=== PATIENT | male | born 1945 | race Caucasian/White ===

== ENCOUNTER 2016-06-08 07:09 | Outpatient (CLI) | payer MEDICARE, BC ==
[~2016-06-08] VITALS: Ht 167.6 cm; Wt 89.2 kg
--- NOTE | ~2016-06-08 | CATH ---
Cardiac Diagnostic Report Demographics Patient Name UNIQUE Keen Gender Male Date of 1945 Age 71 year(s) Patient Number [id number] Date of Study 06/08/2016 Visit Number [id number] Room Number G63[address] [place] [id number] Ht 167.64 cm Wt 89.2 kg Referring Janes Carlisle Primary Physician Physician Performing Efstratiou Secondary Physician Physician Carmencita Carlin MD Diagnostic Efstratiou Assisting Physician Physician Carmencita Carlin MD Interventional Physician Chair Inspector Physician Findings and Conclusions Diagnostic Findings and Conclusion Non-obstructive CAD. Preserved EF (55-60%). Diagnostic Recommendations Add beta mariza and statin. Procedure Description The patient was brought to the diagnostic cardiac catheterization-EP laboratory in the fasting, non-sedated state. Informed consent was obtained in the written and verbal form after the risks and benefits were explained. The patient had no further questions and agreed to proceed. The planned puncture-incision site(s) were shaved and prepped with ChloraPrep and draped in the usual sterile manner. Supplemental oxygen and pain control medications were delivered by a registered nurse under physician guidance. Surface ECG rhythm, blood pressure measurement, and pulse oximetry were monitored throughout the procedure. Arterial access. The access site was infiltrated with lidocaine. The vessel was entered with the Seldinger technique. A sheath was advanced into the vessel and used for catheter placement. Selective left coronary angiography. A catheter was advanced into the left coronary vessel ostium under Fluoroscopic guidance. Contrast was injected by hand. Images were obtained in multiple projections. Selective right coronary angiography. A catheter was advanced into the right coronary vessel ostium under fluoroscopic guidance. Contrast was injected by hand. Images were obtained in multiple projections. Left heart catheterization with ventriculography. A catheter was advanced across the aortic valve to the left ventricle under fluoroscopic guidance. Resting hemodynamics were obtained. With the catheter at the left ventricular apex, contrast was injected. Images were obtained in DIVEHI projections. Post-ventriculography LV pressure was obtained. The catheter was gradually withdrawn into the aorta with continuous pressure recording. Arterial artery hemostasis was achieved. The patient was transferred to [facility] via cart accompanied by a nurse. The patient left the laboratory in stable condition. Diagnostic Cath Status: Elective Procedure Procedure Type Diagnostic procedure:Ventriculogram:, Left, Angiography:, Coronary Angios w/[facility] Indications: Shortness of breath and Premature Ventricular Contractions. The procedure was explained in detail to the patient. Risks, complications and alternative treatments were reviewed. Written consent was obtained. Medications Reviewed with Patient prior to Procedure. Angiographic Findings Dominance: Right Cardiac Arteries and Lesion Findings LMCA: Normal (0% Stenosis).Patent. LAD: Multiple stenosis.Diag patent. Lesion on Prox LAD: Ostial.25% stenosis . Lesion on Prox LAD: Distal subsection.25% stenosis . Lesion on Dist LAD: Mid subsection.30% stenosis . LCx: Multiple stenosis. Lesion on Mid CX: Mid subsection.30% stenosis . Lesion on 1st Ob Janie: Mid subsection.20% stenosis . RCA: Multiple stenosis. Lesion on Prox RCA: Proximal subsection.30% stenosis . Lesion on Dist RCA: Distal subsection.30% stenosis . Coronary Tree Procedure Data Procedure Date Date: 06/08/2016Start: 09:16 AMEnd: 09:56 AM Entry Locations - Antegrade Percutaneous access was performed through the Right Radial artery (Primary location). A 6 Fr sheath was inserted. Hemostasis was successfully obtained using Mechanical Compression. Closure Comments: 12 ml of air in R. Band by Kam Verma. Procedure Medications Order and Administration + + +-------+-------+ !Time !Medication !Dosage !Route ! + + +-------+-------+ !06/08/2016 !Fentanyl !50 mcg !I.V. ! !09:11 AM ! ! ! ! + + +-------+-------+ !06/08/2016 !PAE Radial Cocktail: Heparin 5000 units, ! !I.A. ! !09:19 AM !Nitroglycerin 200mcg, Verapamil 3 mg ! ! ! ! !(ACC_3) ! ! ! + + +-------+-------+ Devices Used - A6 Fr. BS JR 4 Diag. Catheterwas used for:Right coronary angiography. - A6 Fr. BS JL 3.5 Diag. Catheterwas used for:Left coronary angiography. - A6 Fr. BS Angled Pigtail Diag. Catheterwas used for:Left ventriculography. Contrast Material - Isovue 37074 ml Fluoroscopy Time: Diagnostic: 3:08 minutes. Total: 3:08 minutes. Fluoroscopy Dose: Diagnostic: 869 mGy. Total: 869 mGy. Estimated Blood Loss: 10 ml. Medical History Allergies - Penicillin. - Sulfa. Risk Factors The patient risk factors include:hypertension, family history of premature CAD, last creatinine: 1 mg/dl, creatinine clearance: 85.48 ml/min and prior SC . Admission Data Admission Date: 06/08/2016 Admission Time: 07:09 AM Admit Source: Other Insurance Payors: Medicare. Admission Medications + +------+------+ + + + + !Medication !Dosage!Times !Last !Last !Administered !Comments ! ! ! !Per !Delivery !Delivery ! ! ! ! ! !Day !Date !Time ! ! ! + +------+------+ + + + + !Aspirin ! ! ! ! ! ! ! !(any) ! ! ! ! ! ! ! + +------+------+ + + + + !Beta ! ! ! ! ! ! ! !Mariza ! ! ! ! ! ! ! !(any) ! ! ! ! ! ! ! + +------+------+ + + + + Clinical Evaluation Leading to Procedure - There were no CAD presentation symptoms. - There were no anginal symptoms. Anti-anginal medications were prescribed during the past two weeks. The medication is: Beta Blockers. - The patient has been in a state of heart failure within the past two weeks. - The patient's heart failure status was assessed as NYHA Class I. [facility] Ventriculography Findings Normal sized left ventricle. Minimal apical hypokinesis. EF 55-60%. LV function assessed . Ejection Fraction - 06/08/2016 - Method: LV gram. EF%: 60. LVA Segment Contractility 1 - Normal 3 - Mild 5 - Severe 7 - Dyskinesis hypokinesis hypokinesis 2 - 4 - Moderate 6 - Akinesis 8 - Aneurysm Hypokinesis hypokinesis Snapshots Hemodynamics Condition: Rest O2 Consumption: Estimated: 243.99Heart Rate: 89 bpm Pressures (mmHg) +-----+ + !Site !Pressure ! +-----+ + !LV !121/0 ,3 ! +-----+ + !LV !112/6 ,7 ! +-----+ + !LV !88/5 ,8 ! +-----+ + !AO !101/67 (84) ! +-----+ + !LV !120/8 ,9 ! +-----+ + !AO !106/63 (85) ! +-----+ + !LV !100/3 ,9 ! +-----+ + !LV !103/4 ,10 ! +-----+ + !AO !100/63 (81) ! +-----+ + !LV !100/5 ,11 ! +-----+ + Valve Gradients and Areas + +---------+---------+---------+ +---------+ + !Valve !Peak !Mean !Area !Index !Flow !Source ! + +---------+---------+---------+ +---------+ + !Aortic !1 !0 ! ! ! ! ! + +---------+---------+---------+ +---------+ + !Aortic !1 !0 ! ! ! ! ! + +---------+---------+---------+ +---------+ + Shunts Oxygen Values O2 Capacity 210.8 O2 Consumption 243.99 Discharge Data Discharge Date: 06/08/2016 Hospital Status: Outpatient Signatures dtt: Ag Liu dtd: 06/08/16 0916 Physician Self Edit
[~2016-06-08 07:09] MED LIST: COREG6.25 MG PO; LIPITOR80 MG PO; PRILOSEC20 MG PO
[2016-06-08 08:01] LABS: BASOPHIL # 0.1 K/uL (0.0-0.2); EOSINOPHIL # 0.2 K/uL (0.0-0.5); EOSINOPHIL % 2.5 %; HEMATOCRIT 45.4 % (37.0-53.0); HEMOGLOBIN 15.5 g/dL (11.0-16.0); IMMATURE GRANULOCYTE % 0.3 %; LYMPHOCYTE # 1.6 K/uL (0.8-4.0); LYMPHOCYTE % 23.8 %; MCH 32.7 pg (27.0-34.0); MCHC 34.1 gm/dL (32.0-36.5); MCV 95.8 fl (83.0-98.0); MONOCYTE # 0.6 K/uL (0.0-1.0); MPV 9.5 fl (9.4-12.4); NEUTROPHIL # (ANC) 4.2 K/uL (1.4-9.0); NEUTROPHIL % 63.4 %; NRBC % 0 /100WBC (0-0.00); PLATELET COUNT 204 K/uL (150-450); RBC 4.74 M/uL (3.50-5.50); RDW-CV 12.9 % (11.9-14.6); WBC 6.7 K/uL (4.0-11.0)
[2016-06-08 08:08] LABS: PROTIME 10.4 SECONDS (9.6-11.1); PTT 24 SECONDS (25-32)
[2016-06-08 08:20] LABS: ALBUMIN 3.4 gm/dL (3.5-5.0); ALK PHOS 82 IU/L (33-138); ALT 38 IU/L (12-78); ANION GAP 13.2 (10.0-19.0); AST 26 IU/L (10-40); BLOOD UREA NITROGEN 19 mg/dL (6-24); CALCIUM 8.3 mg/dL (8.5-10.5); CHLORIDE 111 mMol/L (96-110); CO2 23 mMol/L (22-32); ESTIMATED GFR (MDRD EQUATION) > 60; POTASSIUM 4.2 mMol/L (3.7-5.1); SODIUM 143 mMol/L (135-145); TOTAL BILIRUBIN 0.6 mg/dL (0.0-1.5); TOTAL PROTEIN 6.8 g/dL (6.0-8.4)
== END 2016-06-08 13:32 | disposition disaster alternative care site (69) ==
LOC: GPCU 07:09 → GCAT 07:09 → GPOC 15:00
PROVIDERS: Internal Medicine Cardiovascular Disease
PROC: 4A023N7 Measurement of Cardiac Sampling and Pressure, Left Heart, Percutaneous Approach (ICD-10-PCS; principal; 2016-06-08)
PROC: B2151ZZ Fluoroscopy of Left Heart using Low Osmolar Contrast (ICD-10-PCS; principal; 2016-06-08)
PROC: B2111ZZ Fluoroscopy of Multiple Coronary Arteries using Low Osmolar Contrast (ICD-10-PCS; principal; 2016-06-08)
DX: I49.3 Ventricular premature depolarization (principal); I25.10 Atherosclerotic heart disease of native coronary artery without angina pectoris; I10 Essential (primary) hypertension; E78.5 Hyperlipidemia, unspecified; R06.02 Shortness of breath; M19.90 Unspecified osteoarthritis, unspecified site; Z79.899 Other long term (current) drug therapy; Z90.79 Acquired absence of other genital organ(s); Z82.49 Family history of ischemic heart disease and other diseases of the circulatory system
CPT/HCPCS: C1894; J1644; J2001; J3010; J7030